=== PATIENT | female | born 1960 | race Caucasian/White ===

== ENCOUNTER → 2020-11-06 13:11 | Outpatient (CLI) | payer BC, SELFPAY ==
--- NOTE | ~2020-11-06 | CT_ITS ---
EXAMINATION: CT soft tissue neck w con EXAM DATE: 11/06/2020 13:40 INDICATION: R22.1 - Localized swelling, mass and lump, neck. Tenderness in throat and right ear. TECHNIQUE: Spiral CT of the neck was performed following intravenous injection of 75 mL Omnipaque 350 . Axial, coronal and sagittal images were reviewed. The dose-length product (DLP) for this examinat ion was 360.46 mGy-cm. The exposure was tailored according to patient size (auto mA exposure control ), and iterative reconstruction (ASIR) was used as additional dose reduction technique. There is no prior study for comparison. FINDINGS: Right-sided internal jugular chain, level 2 lymph node which may have some central necrosis , measuring 2.4 x 1.9 x 2.4 cm. Slightly indistinct fat planes surrounding this. Pathologically enlar ged lymph node with metastatic disease, or less likely lymphoma or granulomatous infection most likel y underlying etiologies. Recommend excision. Please note there is sizable vein superficial to this. There is some bilateral mucosal nodularity along the lingual tonsils and vallecula, possible primary squamous cell cancer. Recommend direct visualization. Also region of asymmetric increased density, en hancement in the left sublingual region, of uncertain clinical significance (indicated on axial image 52). The thyroid gland is unremarkable. The submandibular and parotid glands are symmetric. The superi or mediastinum is unremarkable. Parapharyngeal and pre-glottic fat planes are preserved. The opac ified vasculature is patent. The orbits are unremarkable. Visualized sinuses and mastoid air cell s are well aerated. Mild apical emphysema. mild to moderate disc disease at C5-6 and 6-7. IMPRESSION: 1. Pathologically enlarged right level 2 lymph node; histologic correlation indicated. 2. Nodularity along lingual tonsillar and vallecular mucosa, possible primary cancer. 3. Small nonspecific left sublingual region of slightly increased enhancement. Reviewed, dictated and finalized at location A. IMPRESSION: 1. Pathologically enlarged right level 2 lymph node; histologic correlation in dicated. 2. Nodularity along lingual tonsillar and vallecular mucosa, possible primary cancer. 3. Small nonspecific left sublingual region of slightly increased enhancement.
== END ==
PROVIDERS: PCP Internal Medicine; Visit Provider Otolaryngology
DX: R22.1 Localized swelling, mass and lump, neck (principal)
CPT/HCPCS: 70491; Q9967

== ENCOUNTER 2020-11-14 12:41 | Outpatient (CLI) | payer BC, SELFPAY ==
--- NOTE | ~2020-11-14 | US_ITS ---
EXAMINATION: US biopsy lymph node DATE: 11/14/2020 14:03 INDICATION: Right neck mass TECHNIQUE: The procedure including the risks and benefits was discussed with the patient. Risks discu ssed included bleeding and infection. The patient understood the risks and agreed to proceed. The sk in overlying the right neck was prepped and draped in usual sterile fashion. Anesthetic was administ ered with 1% lidocaine subcutaneously. An 18 gauge core biopsy needle was advanced under continuous ultrasound observation to the lesion of interest. 4 core biopsy specimens were obtained. The needle was removed and the entry site was cleaned and dressed. Post procedure ultrasound demonstrated no h emorrhage. FINDINGS: Ultrasound images demonstrate a 2.5 x 1.4 x 1.7 cm solid heterogeneously hypoechoic right j ugular chain lymph node. The current images demonstrate the biopsy needle advanced into the lymph nod e. IMPRESSION: 1. Successful Ultrasound-guided biopsy of a 2.5 x 1.4 x 1.7 cm right jugular chain lymph node. Reviewed, dictated and finalized at location A. IMPRESSION: 1. Successful Ultrasound-guided biopsy of a 2.5 x 1.4 x 1.7 cm right jugular ch ain lymph node.
== END 2020-11-14 12:42 | disposition home or self-care (01) ==
LOC: ANHIMG 12:44
PROVIDERS: PCP Internal Medicine; Visit Provider Otolaryngology
DX: C77.0 Secondary and unspecified malignant neoplasm of lymph nodes of head, face and neck (principal)
CPT/HCPCS: 38505; 76942; 88305; 88342